=== PATIENT | female | born 1985 | race African-American/Black ===

== ENCOUNTER 2018-01-02 16:20 | Emergency (ER) | payer OTHER ==
--- NOTE | 2018-01-02 16:26 | PDOC ---
Rapid Medical Evaluation Time Seen by Provider: 01/02/18 16:22 Medical Evaluation: Allergies Allergy/AdvReac Type Severity Reaction Status Date / Time No Known Drug Allergies Allergy Verified 08/08/14 06:56 01/02/18 16:23 I have performed a brief in-person evaluation of this patient. The patient presents with a chief complaint of: + epigastric pain with diarrhea since today, just came back from [facility] 12/27/17, denies CP Pertinent physical exam findings:tearful with epigastric tenderness, + tachy I have ordered the following:labs, ua The patient will proceed to the ED for further evaluation. 01/02/18 16:27 Discharge Disposition - Diagnosis Abdominal pain Qualifiers: Abdominal location: epigastric Qualified Code(s): R10.13 - Epigastric pain - Referrals Referrals: Jamie Hawk MD [Primary Care Provider] - - Patient Instructions - Post Discharge Activity
[2018-01-02 16:29] VITALS: BMI 21.6
[2018-01-02] MEDS ORDERED: FAMOTIDINE 20 MG/50 ML IVPB 20 MG/50 ML MG IVPB ONE ×2 (17:50→18:01)
[2018-01-02] MEDS ORDERED: ACETAMINOPHEN 1000 MG/100 ML VIAL (NON FORMULARY) IVPB ONE (17:50)
[2018-01-02] MEDS ORDERED: SODIUM CHLORIDE 1,000 ML IV STA ×2 (17:50→19:53)
[2018-01-02] MEDS ORDERED: ACETAMINOPHEN INJECTION 100 ML IVPB ONE (18:01)
[2018-01-02 18:15] LABS: HEMATOCRIT 40.7 % (32.4-45.2); HEMOGLOBIN 13.6 GM/dL (10.7-15.3); MCH 27.8 pg (25.7-33.7); MCHC 33.4 g/dl (32.0-36.0); MEAN CELL VOLUME 83.1 fl (80-96); MEAN PLT VOLUME 8.1 fl (7.5-11.1); PLATELET COUNT 249 K/MM3 (134-434); RBC 4.89 M/mm3 (3.60-5.2); RDW 14.2 % (11.6-15.6); WHITE BLOOD COUNT 14.8 K/mm3 (4.0-10.0)
[2018-01-02 18:40] LABS: ALBUMIN 4.2 g/dl (3.4-5.0); ALK PHOS 65 U/L (45-117); ANION GAP 12 MMOL/L (8-16); BILIRUBIN,TOTAL 0.5 mg/dL (0.2-1.0); BLOOD UREA NITROGEN 18 mg/dL (7-18); CALCIUM 9.3 mg/dL (8.5-10.1); CHLORIDE 109 mmol/L (98-107); CO2 22 mmol/L (21-32); CREATININE 0.9 mg/dL (0.55-1.02); GLUCOSE,RANDOM 84 mg/dL (74-106); SGOT/AST 97 U/L (15-37); SGPT/ALT 75 U/L (12-78); SODIUM 143 mmol/L (136-145)
[2018-01-02] MEDS ORDERED: morphine CARPU-JECT 2 MG/1 ML DISP.SYRIN IVPUSH ONE (19:34)
[2018-01-02] MEDS ORDERED: ONDANSETRON 4 MG/2 ML VIAL IVPB ONE (19:34)
[2018-01-02] MEDS ORDERED: MORPHINE SULFATE 2 MG/ML VIAL ONE (19:53)
[2018-01-02] MEDS ORDERED: MAG HYDROX/AL HYDROX/SIMETH 30 ML UNIT-DOSE CUP PO ONE (19:53)
[2018-01-02] MEDS ORDERED: ONDANSETRON 4 MG/2 ML VIAL ONE (19:54)
[2018-01-02] MEDS ORDERED: MAG HYDROX/AL HYDROX/SIMETH 30 ML UNIT-DOSE CUP ONE (20:06)
--- NOTE | 2018-01-02 21:29 | PDOC ---
History of Present Illness - General Chief Complaint: Pain, Acute Stated Complaint: ABD PAIN Time Seen by Provider: 01/02/18 16:22 History Source: Patient Exam Limitations: No Limitations - History of Present Illness Initial Comments: 01/02/18 21:25 Pt is a 32yo previously healthy f presenting to ED with RUQ/epigastric pain that started at 3pm. Pt said she was at work when all of the sudden she felt a sharp pain in her stomach. It is associated with nausea, but no vomiting. Pt said she just came back from [facility] on 12/27. She also admits to diarrhea that started yesterday. She does not know if there is blood in the stool. She also admits to subjective fever, cough and nasal congestion. She denies chest pain, shortness of breath, headache. She said she was vaccinated for meningitis before her trip. PMH: none PSH: none Allergies: nkda Past History - Past Medical History Allergies/Adverse Reactions: Allergies Allergy/AdvReac Type Severity Reaction Status Date / Time No Known Drug Allergies Allergy Verified 08/08/14 06:56 Home Medications: Ambulatory Orders Cephalexin [Keflex] 500 mg PO BID #0 capsule 08/08/14 Oxycodone HCl/Acetaminophen [Percocet 5/325 -] 1 tab PO Q4H #60 tablet 08/08/14 Ondansetron HCl [Zofran] 4 mg PO DAILY #7 tablet 01/02/18 Anemia: No Asthma: No Cancer: No Cardiac Disorders: No CVA: No COPD: No CHF: No Dementia: No Diabetes: No GI Disorders: No Disorders: No HTN: No Hypercholesterolemia: No Liver Disease: No Seizures: No Thyroid Disease: No - Surgical History Abdominal Surgery: No Appendectomy: No Cardiac Surgery: No Cholecystectomy: No Lung Surgery: No Neurologic Surgery: No Orthopedic Surgery: Yes (RIGHT [id number]) - Immunization History Immunization Up to Date: Yes - Suicide/Smoking/Psychosocial Hx Smoking History: Never smoked Have you smoked in the past 12 months: No Information on smoking cessation initiated: No Hx Alcohol Use: No Drug/Substance Use Hx: No Substance Use Type: None Hx Substance Use Treatment: No Review of Systems - Review of Systems Constitutional: Yes: Fever. No: Chills HEENTM: No: Recent change in vision Respiratory: No: Cough, Shortness of Breath Cardiac (ROS): No: Chest Pain, Lightheadedness, Palpitations, Syncope ABD/GI: Yes: See HPI, Diarrhea, Nausea, Abdominal cramping. No: Constipated, Vomiting : No: Burning, Dysuria Musculoskeletal: No: Back Pain, Muscle Pain Neurological: No: Headache, Numbness, Paresthesia, Tingling *Physical Exam - Vital Signs Last Vital Signs Temp Pulse Resp BP Pulse Ox 99.0 F 130 H 16 137/84 100 01/02/18 16:25 01/02/18 16:25 01/02/18 16:25 01/02/18 16:25 01/02/18 16:25 - Physical Exam Comments: 01/02/18 21:37 Pt lying in bed with knees to her chest. General Appearance: Yes: Nourished, Appropriately Dressed, Moderate Distress HEENT: positive: EOMI, BRITTANY, Pharynx Normal. negative: Pale Conjunctivae, Scleral Icterus (R), Scleral Icterus (L), Pharyngeal Erythema Neck: positive: Trachea midline, Supple. negative: Lymphadenopathy (R), Lymphadenopathy (L) Respiratory/Chest: positive: Lungs Clear, Normal Breath Sounds. negative: Crackles, Rhonchi, Stridor, Wheezing Cardiovascular: positive: Regular Rhythm, S1, S2, Tachycardia. negative: JVD, Murmur Vascular Pulses: Carotid (R): 2+, Carotid (L): 2+, Dorsalis-Pedis (R): 2+, Doralis-Pedis (L): 2+ Gastrointestinal/Abdominal: positive: Normal Bowel Sounds, Soft, Tenderness ( RUQ and epigastric tenderness). 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, Fully Oriented, Alert, Normal Mood/ Affect, Normal Response, Motor Strength 5/5 ED Treatment Course - LABORATORY CBC & Chemistry Diagram: 01/02/18 18:00 01/02/18 18:00 - ADDITIONAL ORDERS Additional order review: Laboratory Results 01/02/18 01/02/18 01/02/18 18:00 18:00 18:00 Sodium Potassium Chloride Carbon Dioxide Anion Gap BUN Creatinine Creat Clearance w eGFR Random Glucose Lactic Acid 1.0 Calcium Total Bilirubin AST ALT Alkaline Phosphatase Total Protein Albumin Lipase 145 Serum , Qual Negative 01/02/18 18:00 Sodium 143 Potassium 4.0 Chloride 109 H Carbon Dioxide 22 Anion Gap 12 BUN 18 Creatinine 0.9 Creat Clearance w eGFR > 60 Random Glucose 84 Lactic Acid Calcium 9.3 Total Bilirubin 0.5 AST 97 H ALT 75 Alkaline Phosphatase 65 Total Protein 8.0 Albumin 4.2 Lipase Serum , Qual 01/02/18 18:00 RBC 4.89 MCV 83.1 MCHC 33.4 RDW 14.2 MPV 8.1 - RADIOLOGY Radiology Studies Ordered: Category Date Time Status ABDOMEN & PELVIS CT WITH CONTR [CT] Stat CT Scan 01/02/18 21:10 Taken ABDOMEN US -LIMITED [US] Stat Ultrasound 01/02/18 17:49 Completed - Medications Given in the ED: ED Medications Discontinued Medications Generic Name Dose Route Start Last Admin Trade Name Freq PRN Reason Stop Dose Admin Acetaminophen 1,000 mg 01/02/18 17:50 01/02/18 18:30 Ofirmev Injection - IVPB 01/02/18 17:51 1,000 mg ONCE ONE Administration Al Hydroxide/Mg Hydroxide 30 ml 01/02/18 19:53 01/02/18 20:05 Mylanta Oral Suspension - PO 01/02/18 19:54 30 ml ONCE ONE Administration Famotidine/Sodium Chloride 20 mg in 50 mls @ 100 mls/hr 01/02/18 17:50 18:55 Pepcid 20 Mg Premixed Ivpb - IVPB 01/02/18 18:19 100 mls/hr ONCE ONE Administration Sodium Chloride 1,000 mls @ 1,000 mls/hr 01/02/18 17:50 01/02/18 18:55 Normal Saline - IV 01/02/18 18:49 1,000 mls/hr ASDIR STA Administration Sodium Chloride 1,000 mls @ 1,000 mls/hr 01/02/18 19:53 01/02/18 20:58 Normal Saline - IV 01/02/18 20:52 1,000 mls/hr ASDIR STA Administration Morphine Sulfate 2 mg 01/02/18 19:34 01/02/18 20:04 Morphine Injection - IVPUSH 01/02/18 19:35 2 mg ONCE ONE Administration Ondansetron HCl 4 mg 01/02/18 19:34 01/02/18 19:55 Zofran Injection IVPB 01/02/18 19:35 4 mg ONCE ONE Administration Medical Decision Making - Medical Decision Making 01/02/18 21:39 Pt is a 32yo previously healthy f presenting to ED with RUQ/epigastric pain that started at 3pm. DDX: pancreatitis, cholecystitis, colitis, Pt tachycardic and borderline fever. Labs were wnl. WBC slightly elevated at 14.9. Low suspicion for sepsis. Pt had 2 episodes of nbnb emesis in the ED. U/S of RUQ showed hemangioma of liver. Will order CT abdomen. Pt given morphine, tylenol, IV saline, pepcid, zofran, maalox. Awaiting CT results 01/02/18 22:20 Ct results showed R hepatic hemangioma. No other pathology. Pt reports feeling much better and is tolerating fluids. Will recheck vitals 01/02/18 22:27 bp 113/67. Hr 62 O2 100%, oral temp 97.7 Pt hemodynamically stable, afebrile, ambulatory and tolerating PO. Most likley viral GE. Pt given return precautions. Pt agreeable to plan and understands reasons to return. Will d/c home with Zofran rx. *DC/Admit/Observation/Transfer Diagnosis at time of Disposition: Abdominal pain Qualifiers: Abdominal location: epigastric Qualified Code(s): R10.13 - Epigastric pain Diarrhea Qualifiers: Diarrhea type: unspecified type Qualified Code(s): R19.7 - Diarrhea, unspecified - Discharge Dispostion Disposition: HOME Condition at time of disposition: Improved Decision to Admit order: No - Prescriptions Prescriptions: Ondansetron HCl [Zofran] 4 mg PO DAILY #7 tablet - Referrals Referrals: Jamie Hawk MD [Primary Care Provider] - - Patient Instructions Printed Discharge Instructions: DI for Diarrhea and Traveler's Diarrhea -- Adult, DI for Epigastric Pain Additional Instructions: You were seen here today because you were having abdominal pain with diarrhea and vomiting. We did blood work and CT scan and an ultrasound. Your blood work was normal. The ultrasound and CT scan showed a hemangioma in your liver. Please follow up with Dr. Hawk with these results. I sent a prescription for Zofran that you can take if you feel nauseous. It is at [facility]. Please come back to the ED if: your pain gets worse, you continue to vomit, your diarrhea gets worse, you notice blood in the stool or vomit, you develop fever or if any new concerning symptom develops. Thank you. - Post Discharge Activity
[2018-01-02 22:29] LABS: URINE APPEARANCE CLEAR; URINE BILIRUBIN NEGATIVE (<2.0 mg/dL); URINE COLOR LTYELLOW; URINE GLUCOSE (UA) NEGATIVE (NEGATIVE); URINE KETONE 1+ (NEGATIVE); URINE LEUK ESTERASE NEGATIVE (NEGATIVE); URINE NITRITE NEGATIVE (NEGATIVE); URINE PROTEIN NEGATIVE (NEGATIVE); URINE UROBILINOGEN NEGATIVE mg/dL (0.2-1.0)
[2018-01-02 22:37] LABS: EPI CELLS RARE /HPF (FEW); URINE MUCUS RARE
--- NOTE | 2018-01-02 22:48 | PDOC ---
Attending Attestation - Resident Resident Name: Angelia Stern - ED Attending Attestation I have performed the following: I have examined & evaluated the patient, The case was reviewed & discussed with the resident, I agree w/resident's findings & plan - HPI HPI: 01/02/18 23:00 Misael Pack presenting with diffuse, epigastric abdominal pain and diarrhea/ vomiting today; recent travel from [place]. No fevers, nonbloody stools or vomit, no other sick contacts. Patient states her abdominal pain began at approximately 3PM today. Patient reports diarrhea yesterday and two episodes of nonbloody vomit here in the ER. Patient denies eating anything unusual while in [place]. The patient denies chest pain, shortness of breath, headache, and dizziness. Denies fever, chills, nausea, vomit, diarrhea, and constipation. Denies dysuria, frequency, urgency, and hematuria. Allergies: NKA PMH: none PSH: none Allergies: nkda - Physicial Exam PE: 01/02/18 23:01 NAD, well appearing, MMM, nl conjunctiva, anicteric; neck supple. lungs clear, RRR, abdomen soft +epigastric and right sided Abdominal tenderness, no rebound or guarding. KEYES x4, no focal neuro deficits. No peripheral edema. normal color for ethnicity, WWP. - Medical Decision Making 01/02/18 22:45 A portion of this note was documented by scribe services under my direction. I have reviewed the details of the note, within reason, and agree with the documentation with the following case summary and management plan written by me. MDM: Misael Pack presenting with diffuse, epigastric abdominal pain and diarrhea/ vomiting today; recent travel from [place]. No fevers, nonbloody stools or vomit, no other sick contacts. DDx. gastroenteritis, viral syndrome, dehydration, electrolyte/metabolic derangements, appy, diverticulitis, UTI, pyeloenephritis, hepatitis, cholecystitis, biliary colic, pancreatitis, gastritis, PUD. Vital signs reviewed, tachycardia initially due to pain, but on repeat much improved and resolved. Prior notes reviewed, including admissions, discharges and consultations. laboratory results and imaging reviewed, basic labs and lytes wnl, notable for mild leukocytosis of 14K.8K, lipase and LFTs normal. Preg test negative, UA_neg for infection. Interventions: GI cocktail, morphine, tylenol, IVF - with symptom relief. CT a/p: hemangioma, but no intra abdominal pathology. RUQ US with hemangioma, no cholelithiasis or cholecystitis. On clinical reeval, abdomen with mild epigastric and right sided abd pain, but no peritoneal signs, tolerating PO fluids. Well appearing and comfortable with discharge. Pt to be discharged in stable condition. Patient and family made aware of impression and plan, return precautions discussed (including but not limited to worsening pain or symptoms), fevers, or signs of infection, chest pain, respiratory distress, inability to tolerate oral intake, dehydration, syncope, or neurologic changes). Follow up with PMD and/or specialist as recommended, follow up information provided, take medications as instructed for duration of time. continue with supportive care, avoid triggers and precipitants. All questions answered to patient's satisfaction and expressed understanding and comfort with this. 01/02/18 22:48 01/02/18 23:01
[2018-01-02 23:01] VITALS: BP 113/67; PULSE 62; TEMP 97.7
== END 2018-01-02 23:30 | disposition home or self-care (01) ==
LOC: JER 16:20
PROC: 3E033NZ Introduction of Analgesics, Hypnotics, Sedatives into Peripheral Vein, Percutaneous Approach (ICD-10-PCS; principal; 2018-01-02)
PROC: 3E0337Z Introduction of Electrolytic and Water Balance Substance into Peripheral Vein, Percutaneous Approach (ICD-10-PCS; 2018-01-02)
PROC: 3E033GC Introduction of Other Therapeutic Substance into Peripheral Vein, Percutaneous Approach (ICD-10-PCS; 2018-01-02)
DX: R10.13 Epigastric pain (principal); R19.7 Diarrhea, unspecified
CPT/HCPCS: 36415; 74177-TC; 76705-TC; 80053; 81003; 81015; 83605; 83690; 84703; 85027; 99282-25; J0131; J7030